=== PATIENT | male | born 1950 | race Caucasian/White ===

== ENCOUNTER 2024-05-16 07:30 | Day surgery (SDC) | payer MEDICARE, OTHER ==
[2024-05-16] MEDS ORDERED: LACTATED RINGERS 1,000 ML BAG ONE (08:15)
[2024-05-16] MEDS ORDERED: PROPOFOL 10 MG/ML 20 ML VIAL IV ONE (08:50)
--- NOTE | 2024-06-23 09:25 | PCN ---
PROCEDURE NOTE BRIEF HISTORY: The patient is a 74-year-old pleasant white male scheduled for an elective colonoscopy as a part of evaluation of screening for colon cancer/positive Cologuard. PROCEDURE PERFORMED: Colonoscopy. PREOPERATIVE DIAGNOSIS: Positive Cologuard/screening for colon cancer. ANESTHESIA: IV sedation per Anesthesia. DESCRIPTION OF PROCEDURE: After informed consent was obtained from the patient, he was brought into the endoscopy unit. IV conscious sedation was administered by Anesthesia under continuous monitoring. Initial digital rectal examination was normal. The Olympus CF-190 video colonoscope was then inserted into the rectum, gradually advanced into the patient. Careful examination was performed as the scope was gradually being withdrawn. The ileocecal valve and the appendiceal orifice were visualized and appeared normal. The prep was excellent. Cecum, ascending colon, transverse colon, descending colon appeared normal. There were scattered sigmoid diverticulosis seen. Rectum appeared normal. Retroflexion was performed in the rectum. Small internal hemorrhoids were seen. The patient tolerated the procedure well. IMPRESSION: 1. Scattered sigmoid diverticulosis. 2. No evidence of colorectal neoplasia. RECOMMENDATIONS: Findings of this examination were discussed with the patient as well as the family. He was advised to be on a high-fiber diet, take fiber supplements on a regular basis. Recommended repeat colonoscopy in 10 years. MMODL / IJN: [id number] /
== END 2024-05-16 09:41 ==
LOC: ORWHC2ENDO 07:30
PROVIDERS: ATTEND Internal Medicine Gastroenterology
DX: K57.30 Diverticulosis of large intestine without perforation or abscess without bleeding
CPT/HCPCS: 45378